=== PATIENT | female | born 1970 | race Caucasian/White ===

== ENCOUNTER 2017-02-11 07:34 | Emergency (ER) | payer BC ==
[~2017-02-11] VITALS: Ht 157.5 cm; Wt 52.6 kg
[2017-02-11 07:37] VITALS: BP_SYST 152
[2017-02-11 09:01] VITALS: BP_SYST 152
== END 2017-02-11 09:01 | disposition home or self-care (01) ==
LOC: SED 07:34
DX: S62.624A Displaced fracture of middle phalanx of right ring finger, initial encounter for closed fracture (principal); W23.0XXA Caught, crushed, jammed, or pinched between moving objects, initial encounter; Y93.89 Activity, other specified; Y92.89 Other specified places as the place of occurrence of the external cause; Y99.8 Other external cause status
CPT/HCPCS: 73140-TC; 81025; 99284